=== PATIENT | male | born 1995 | race Caucasian/White ===

== ENCOUNTER 2016-06-23 13:07 | Emergency (ER) | payer MEDICAID, OTHER ==
[~2016-06-23] VITALS: Ht 180.3 cm; Wt 60.2 kg
[2016-06-23 13:09] VITALS: BP 122/75
[2016-06-23] MEDS ORDERED: LIDOCAINE 1%, 20ML ONE (13:53)
[2016-06-23] MEDS ORDERED: DIPH,PERTUSS(ACELL),TET VAC/PF 0.5 ML IM-VACC ONE ×2 (13:54→14:00)
[2016-06-23] MEDS ORDERED: LIDOCAINE 1%, 20ML SQ ONE (14:00)
== END 2016-06-23 14:43 | disposition home or self-care (01) ==
LOC: ED 14:15
DX: S61.411A Laceration without foreign body of right hand, initial encounter (principal); Z23 Encounter for immunization; X58.XXXA Exposure to other specified factors, initial encounter; Y93.89 Activity, other specified; Y99.8 Other external cause status; Y92.89 Other specified places as the place of occurrence of the external cause
CPT/HCPCS: 12001; 90471; 90715